=== PATIENT | female | born 2000 | race African-American/Black ===

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

== ENCOUNTER 2018-01-10 10:52 | Inpatient (IN) | payer MEDICAID ==
[~2018-01-10] VITALS: Ht 162.6 cm; Wt 94.3 kg
[2018-01-10] MEDS ORDERED: SODIUM CHLORIDE 0.9% 1,000 ML IV ONE (11:15)
[2018-01-10 12:13] LABS: Basophils # (auto) 0.1 uL; Basophils % (auto) 0.3 % (0.0-2.0); Eosinophils # (auto) 0 uL; Eosinophils % (auto) 0.2 % (0.0-7.0); Hemoglobin 14.9 g/dL (12.2-16.2); Lymphocytes % (auto) 19.5 % (10.0-50.0); Mean Corpuscular Hemoglobin 29.2 pg (28.0-32.0); Mean Corpuscular Hgb Conc. 33.2 g/dL (32.0-36.0); Mean Corpuscular Volume 87.9 fL (80.0-100.0); Monocytes # (auto) 0.7 uL; Monocytes % (auto) 4.9 % (0.0-12.0); Neutrophils # (auto) 11.4 uL; Neutrophils % (auto) 75.1 % (37.0-80.0); Platelet Count (auto) 403 10^3/uL (140-450); Red Blood Cells 5.12 10^6/uL (4.0-5.20); Red Cell Distribution Width 13.7 % (11.8-14.3); White Blood Cell 15.2 10^3/uL (4.4-10.8)
[2018-01-10 12:33] LABS: Albumin 3.9 g/dL (3.4-5.0); BUN/Creatinine Ratio 11.7; Calcium 9.2 mg/dL (8.5-10.1); Potassium 3.2 mmol/L (3.5-5.1)
[2018-01-10 12:38] LABS: Bilirubin, Total 0.5 mg/dL (0.2-1.0); Total Protein 8.1 g/dL (6.4-8.2)
[2018-01-10 12:54] LABS: Urine Bacteria NONE SEEN /hpf (None Seen); Urine Blood Negative /uL (Negative); Urine Mucus FEW (None Seen); Urine Specific Gravity 1.039 (1.001-1.035); Urine WBC 8 /hpf (0 - 5)
[2018-01-10] MEDS ORDERED: SODIUM CHLORIDE 0.9% 1,000 ML IV SCH (13:38)
[2018-01-10] MEDS ORDERED: cefTRIAXone 1GM/50ML D5W 50 ML IV ONE (13:45)
[2018-01-10] MEDS ORDERED: LORazepam 2MG/ML-1ML VIAL IV PRN (13:45)
[2018-01-10] MEDS ORDERED: ONDANSETRON HCL 4 MG/2 ML VIAL IV PRN (13:45)
[2018-01-10] MEDS ORDERED: NITROGLYCERIN 0.4 MG SL TAB SL PRN (13:45)
[2018-01-10] MEDS ORDERED: MORPHINE SULFATE 4 MG/ML SYR/VIAL IV PRN ×2 (13:45→15:15)
[2018-01-10] MEDS ORDERED: ALBUTEROL SULF 2.5 MG/0.5ML(0.5%) NEB SOLN NEB PRN (13:45)
[2018-01-10] MEDS ORDERED: PANTOPRAZOLE 40 MG/10 ML VIAL IV ONE (13:45)
[2018-01-10] MEDS: FAMOTIDINE (10MG/ML) 2ML VL IV SCH (13:58)
[2018-01-10] MEDS ORDERED: metroNIDAZOLE 500MG/100ML 100 ML IV SCH (14:00)
[2018-01-10 14:35] LABS: INR 0.95 (0.9-1.15); Partial Thromboplastin Time 27.3 sec (23.78-33.04); Prothrombin Time 10.2 sec (9.27-12.13)
[2018-01-10 14:45] VITALS: BP 117/81
[2018-01-10] MEDS ORDERED: ONDANSETRON HCL 4 MG/2 ML VIAL IV ONE (15:15)
[2018-01-10] MEDS ORDERED: MIDAZOLAM HCL 1MG/1ML-2 ML VIAL IV PRN (15:15)
[2018-01-10] MEDS ORDERED: KETOROLAC TROMETH 30 MG/ML 1ML VIAL IV ONE (15:15)
[2018-01-10] MEDS ORDERED: LABETALOL HCL 5 MG/ML 4ML SYRINGE IV PRN (15:15)
[2018-01-10] MEDS ORDERED: ePHEDrine SULFATE 50 MG/ML AMP IV PRN (15:15)
[2018-01-10] MEDS ORDERED: SUCCINYLCHOLINE CHLORIDE 20 MG/ML 10ML VIAL IV ONE (15:23)
[2018-01-10] MEDS ORDERED: MEPERIDINE HCL (50 MG/ML) 1 ML VIAL ONE (15:26)
[2018-01-10] MEDS ORDERED: MIDAZOLAM HCL 1MG/1ML-2 ML VIAL ONE (15:26)
[2018-01-10] MEDS ORDERED: fentaNYL CITRATE 100 MCG/2 ML VL ONE (15:26)
[2018-01-10] MEDS ORDERED: PROPOFOL 10 MG/ML 20 ML IV ONE (15:47)
[2018-01-10] MEDS ORDERED: DEXAMETHASONE SOD PHOS 10MG/1ML VIAL INJ ONE (15:47)
[2018-01-10] MEDS ORDERED: ROCURONIUM 10MG/ML 10ML VIAL IV ONE (15:48)
[2018-01-10] MEDS ORDERED: POVIDONE IODINE 10 % TOPICAL OINT 30GM TOP ONE (15:49)
[2018-01-10] MEDS ORDERED: MORPHINE SULFATE 4 MG/ML SYR/VIAL IV ONE (16:00)
[2018-01-10] MEDS ORDERED: PHENYLEPHRINE HCL 10 MG/ML VL ONE (16:01)
[2018-01-10] MEDS ORDERED: NEOSTIGMINE 1 MG/ML INJ (10mg/10ML VIAL) ONE (16:20)
[2018-01-10] MEDS ORDERED: KETOROLAC TROMETH 30 MG/ML 1ML VIAL ONE (16:21)
[2018-01-10] MEDS ORDERED: GLYCOPYRROLATE 0.2 MG/ML 1ML VIAL ONE (16:21)
[2018-01-10] MEDS ORDERED: IPRATROPIUM BROM 0.5 MG/2.5ML INH SOL NEB ONE (17:00)
[2018-01-10] MEDS ORDERED: ALBUTEROL SULF 2.5 MG/0.5ML(0.5%) NEB SOLN NEB ONE (17:00)
[2018-01-10] MEDS: HYDROmorphone HCL 2 MG/ML VL IV PRN ×2 (17:36→17:50)
[2018-01-10] MEDS: SOD CHL 0.9%/ KCL 40MEQ 1,000 ML IV SCH (18:51)
[2018-01-10 18:56] VITALS: BP 113/59
[2018-01-10 19:35] LABS: Basophils # (auto) 0 uL; Basophils % (auto) 0.2 % (0.0-2.0); Eosinophils # (auto) 0 uL; Hematocrit 40.6 % (36.0-46.0); Hemoglobin 13.3 g/dL (12.2-16.2); Lymphocytes # (auto) 1.5 uL; Lymphocytes % (auto) 8.1 % (10.0-50.0); Mean Corpuscular Hemoglobin 29.2 pg (28.0-32.0); Mean Corpuscular Hgb Conc. 32.8 g/dL (32.0-36.0); Mean Corpuscular Volume 89.1 fL (80.0-100.0); Monocytes # (auto) 0.2 uL; Monocytes % (auto) 1.4 % (0.0-12.0); Neutrophils # (auto) 16.2 uL; Neutrophils % (auto) 90.3 % (37.0-80.0); Platelet Count (auto) 341 10^3/uL (140-450); Red Blood Cells 4.56 10^6/uL (4.0-5.20); Red Cell Distribution Width 13.7 % (11.8-14.3)
[2018-01-10] MEDS: MORPHINE SULFATE 4 MG/ML SYR/VIAL IV PRN ×2 (19:50→22:47)
[2018-01-10] MEDS: metroNIDAZOLE 500MG/100ML 100 ML IV SCH (21:19)
[2018-01-10 21:50] VITALS: BP 111/62
[2018-01-11] MEDS: MORPHINE SULFATE 4 MG/ML SYR/VIAL IV PRN ×5 (02:51→19:57)
[2018-01-11] MEDS: FAMOTIDINE (10MG/ML) 2ML VL IV SCH ×2 (02:51→13:45)
[2018-01-11] MEDS: metroNIDAZOLE 500MG/100ML 100 ML IV SCH ×4 (02:52→21:20)
[2018-01-11 05:00] VITALS: BP 112/62
[2018-01-11] MEDS: SOD CHL 0.9%/ KCL 40MEQ 1,000 ML IV SCH ×2 (05:38→14:00)
[2018-01-11 06:22] LABS: Basophils # (auto) 0 uL; Basophils % (auto) 0.2 % (0.0-2.0); Eosinophils # (auto) 0 uL; Hematocrit 38.9 % (36.0-46.0); Lymphocytes # (auto) 1.6 uL; Lymphocytes % (auto) 8.9 % (10.0-50.0); Mean Corpuscular Hemoglobin 29.6 pg (28.0-32.0); Mean Corpuscular Hgb Conc. 33.4 g/dL (32.0-36.0); Mean Corpuscular Volume 88.5 fL (80.0-100.0); Monocytes # (auto) 0.8 uL; Monocytes % (auto) 4.8 % (0.0-12.0); Neutrophils % (auto) 86.1 % (37.0-80.0); Platelet Count (auto) 336 10^3/uL (140-450); Red Cell Distribution Width 13.6 % (11.8-14.3); White Blood Cell 17.4 10^3/uL (4.4-10.8)
[2018-01-11 06:39] LABS: Potassium 4.3 mmol/L (3.5-5.1)
[2018-01-11 06:46] LABS: BUN/Creatinine Ratio 15.1
[2018-01-11 06:49] LABS: Bilirubin, Total 0.4 mg/dL (0.2-1.0); Total Protein 6.4 g/dL (6.4-8.2)
[2018-01-11 07:28] LABS: Cholesterol 157 mg/dL (< 200); HDL Cholesterol 34 mg/dL (40-59); LDL Cholesterol 116 mg/dL (< 100); Triglycerides 66 mg/dL (< 150)
[2018-01-11 09:00] VITALS: BP 111/64
[2018-01-11] MEDS: cefTRIAXone 1GM/50ML D5W 50 ML IV SCH (10:00)
[2018-01-11] MEDS: ENOXAPARIN SOD 40 MG/0.4 ML SYRINGE SC SCH (10:00)
[2018-01-11] MEDS: PANTOPRAZOLE 40 MG/10 ML VIAL IV SCH (10:00)
[2018-01-11 13:00] VITALS: BP 123/89
[2018-01-11 16:34] VITALS: BP 109/67
[2018-01-11 22:00] VITALS: BP 110/71
[2018-01-12] MEDS: FAMOTIDINE (10MG/ML) 2ML VL IV SCH (02:12)
[2018-01-12] MEDS: MORPHINE SULFATE 4 MG/ML SYR/VIAL IV PRN ×5 (02:13→21:00)
[2018-01-12] MEDS: metroNIDAZOLE 500MG/100ML 100 ML IV SCH ×4 (03:08→20:59)
[2018-01-12] MEDS ORDERED: ACETAMINOPHEN 325 MG TAB PO PRN (04:15)
[2018-01-12] MEDS: SOD CHL 0.9%/ KCL 40MEQ 1,000 ML IV SCH ×2 (04:26→10:09)
[2018-01-12 04:50] VITALS: BP 107/51
[2018-01-12] MEDS: IBUPROFEN 400 MG TAB PO PRN (05:33)
[2018-01-12 09:00] VITALS: BP 100/57
[2018-01-12] MEDS: cefTRIAXone 1GM/50ML D5W 50 ML IV SCH (10:08)
[2018-01-12] MEDS: PANTOPRAZOLE 40 MG/10 ML VIAL IV SCH (10:09)
[2018-01-12] MEDS: ENOXAPARIN SOD 40 MG/0.4 ML SYRINGE SC SCH (10:09)
[2018-01-12 13:00] VITALS: BP 103/60
[2018-01-12] MEDS ORDERED: FLUoxetine HCL 10 MG CAP PO ONE (13:00)
[2018-01-12 17:00] VITALS: BP_SYST 103; BP_SYST 118; BP_DIAS 58; BP_DIAS 86
[2018-01-12] MEDS: risperiDONE 1 MG TAB PO SCH (21:53)
[2018-01-12] MEDS: DOCUSATE SOD 100 MG CAP PO SCH (21:53)
[2018-01-12] MEDS: ALPRAZolam 0.25 MG TAB PO SCH (21:54)
[2018-01-12 22:00] VITALS: BP 115/69
[2018-01-13] MEDS: metroNIDAZOLE 500MG/100ML 100 ML IV SCH ×3 (03:21→15:00)
[2018-01-13] MEDS: MORPHINE SULFATE 4 MG/ML SYR/VIAL IV PRN ×3 (03:35→16:07)
[2018-01-13 05:00] VITALS: BP 99/66
[2018-01-13 07:28] VITALS: BP 99/64
[2018-01-13 07:57] LABS: Basophils # (auto) 0 uL; Basophils % (auto) 0.8 % (0.0-2.0); Eosinophils # (auto) 0.2 uL; Eosinophils % (auto) 2.8 % (0.0-7.0); Hematocrit 39.7 % (36.0-46.0); Hemoglobin 13.1 g/dL (12.2-16.2); Lymphocytes # (auto) 1.7 uL; Mean Corpuscular Hemoglobin 29.4 pg (28.0-32.0); Mean Corpuscular Hgb Conc. 32.9 g/dL (32.0-36.0); Mean Corpuscular Volume 89.2 fL (80.0-100.0); Monocytes # (auto) 0.5 uL; Monocytes % (auto) 8.5 % (0.0-12.0); Neutrophils # (auto) 3.6 uL; Neutrophils % (auto) 59.9 % (37.0-80.0); Nucleated Red Blood Cells % 0.1 %; Platelet Count (auto) 261 10^3/uL (140-450); Red Blood Cells 4.45 10^6/uL (4.0-5.20); Red Cell Distribution Width 13.9 % (11.8-14.3); White Blood Cell 6.1 10^3/uL (4.4-10.8)
[2018-01-13 08:58] VITALS: BP 101/61
[2018-01-13] MEDS: DOCUSATE SOD 100 MG CAP PO SCH ×2 (10:00→21:47)
[2018-01-13] MEDS: PANTOPRAZOLE 40 MG TAB PO SCH (10:01)
[2018-01-13] MEDS: ALPRAZolam 0.25 MG TAB PO SCH ×2 (10:01→21:47)
[2018-01-13] MEDS: risperiDONE 1 MG TAB PO SCH ×2 (10:01→21:47)
[2018-01-13] MEDS: FLUoxetine HCL 10 MG CAP PO SCH (10:01)
[2018-01-13] MEDS: ENOXAPARIN SOD 40 MG/0.4 ML SYRINGE SC SCH (10:01)
[2018-01-13] MEDS: cefTRIAXone 1GM/50ML D5W 50 ML IV SCH (11:15)
[2018-01-13 13:00] VITALS: BP 103/56
[2018-01-13 17:00] VITALS: BP 105/60
[2018-01-13] MEDS ORDERED: HYDROcodone-ACET 5/325MG TAB PO PRN (18:30)
[2018-01-13 21:44] VITALS: BP 105/52
[2018-01-14 04:49] VITALS: BP 101/61
[2018-01-14] MEDS: IBUPROFEN 400 MG TAB PO PRN (05:53)
[2018-01-14 09:00] VITALS: BP 115/64
[2018-01-14] MEDS: PANTOPRAZOLE 40 MG TAB PO SCH (11:15)
[2018-01-14] MEDS: risperiDONE 1 MG TAB PO SCH (11:15)
[2018-01-14] MEDS: FLUoxetine HCL 10 MG CAP PO SCH (11:15)
[2018-01-14] MEDS: DOCUSATE SOD 100 MG CAP PO SCH (11:15)
[2018-01-14] MEDS: ENOXAPARIN SOD 40 MG/0.4 ML SYRINGE SC SCH (11:16)
[2018-01-14] MEDS: ALPRAZolam 0.25 MG TAB PO SCH (11:16)
[2018-01-14] MEDS ORDERED: PANT40T PO (12:55)
[2018-01-14 13:00] VITALS: BP 110/62
[2018-01-14] MEDS ORDERED: traMADol HCL 50 MG TAB PO PRN (13:00)
[2018-01-14] MEDS ORDERED: LACTULOSE 20Gm/30ML SOLN PO ONE (13:00)
[2018-01-14 17:10] VITALS: BP 103/60
== END 2018-01-14 17:52 | disposition home or self-care (01) | DRG 263 ==
LOC: EDBD 10:52 → ER 10:52 → TELE 10:53 → TELE-EAST 18:18 → EAST 01-12 21:32
PROVIDERS: ADMIT Internal Medicine; ATTEND Internal Medicine
PROC: 0FT44ZZ Resection of Gallbladder, Percutaneous Endoscopic Approach (ICD-10-PCS; principal; 2018-01-10 15:29)
DX: K80.00 Calculus of gallbladder with acute cholecystitis without obstruction (principal); R65.10 Systemic inflammatory response syndrome (SIRS) of non-infectious origin without acute organ dysfunction; E66.01 Morbid (severe) obesity due to excess calories; F31.30 Bipolar disorder, current episode depressed, mild or moderate severity, unspecified; J45.909 Unspecified asthma, uncomplicated; E78.5 Hyperlipidemia, unspecified; Z68.35 Body mass index [BMI] 35.0-35.9, adult; Z71.3 Dietary counseling and surveillance; F41.9 Anxiety disorder, unspecified; F60.9 Personality disorder, unspecified; Z82.49 Family history of ischemic heart disease and other diseases of the circulatory system; Z83.3 Family history of diabetes mellitus; Z91.19 Patient's noncompliance with other medical treatment and regimen; Z88.8 Allergy status to other drugs, medicaments and biological substances; R50.9 Fever, unspecified
CPT/HCPCS: 36415; 71045; 76705; 80053; 80061; 81001; 81025; 82150; 82247; 83690; 85025; 85379; 85610; 85652; 85730; 86850; 86900; 86901; 93005; 94640; 96361; 96365; 96375; 97116; 97163; A6257; C9113; G0378; J0330; J0696; J1100; J1885; J2250; J2405; J2704; J3490

== ENCOUNTER 2018-02-11 16:16 | Emergency (ER) | payer MEDICAID ==
[~2018-02-11] VITALS: Ht 162.6 cm; Wt 91.2 kg
[~2018-02-11 16:16] MED LIST changes: +PANT40T PO
[2018-02-11 16:25] VITALS: BP 114/81
[2018-02-11] MEDS ORDERED: IBUPROFEN 800 MG TAB PO ONE (16:45)
== END 2018-02-11 18:21 | disposition home or self-care (01) ==
LOC: ER 16:24
DX: H60.93 Unspecified otitis externa, bilateral (principal); R42 Dizziness and giddiness; J45.909 Unspecified asthma, uncomplicated; Z90.49 Acquired absence of other specified parts of digestive tract

== ENCOUNTER 2018-06-12 17:04 | Emergency (ER) | payer MEDICAID ==
[~2018-06-12] VITALS: Ht 162.6 cm; Wt 98.2 kg
[2018-06-12 17:33] VITALS: BP 12/71
== END 2018-06-12 17:59 | disposition home or self-care (01) ==
LOC: ER 17:06
DX: S53.402A Unspecified sprain of left elbow, initial encounter (principal); J45.909 Unspecified asthma, uncomplicated; Z90.49 Acquired absence of other specified parts of digestive tract; Z88.2 Allergy status to sulfonamides; Z88.6 Allergy status to analgesic agent; W01.0XXA Fall on same level from slipping, tripping and stumbling without subsequent striking against object, initial encounter; Y93.89 Activity, other specified; Y92.89 Other specified places as the place of occurrence of the external cause; Y99.8 Other external cause status
CPT/HCPCS: 73080; 81025

== ENCOUNTER 2018-09-23 13:37 | Emergency (ER) | payer MEDICAID ==
[~2018-09-23] VITALS: Ht 165.1 cm; Wt 90.7 kg
[2018-09-23 15:03] LABS: Chloride 108 mmol/L (98-107); Potassium 3.7 mmol/L (3.5-5.1); Sodium 140 mmol/L (136-145)
[2018-09-23 15:07] LABS: Albumin 3.4 g/dL (3.4-5.0); Anion Gap 9 (5-15); BUN/Creatinine Ratio 10.1; Blood Urea Nitrogen 8 mg/dL (7-18); Calcium 8.5 mg/dL (8.5-10.1); Carbon Dioxide 23 mmol/L (21-32); GFR African American 119 mL/min; GFR Non-African American 99 mL/min; Glucose 88 mg/dL (74-106)
[2018-09-23 15:22] LABS: Alanine Aminotransferase 26 U/L (13-56); Alkaline Phosphatase 52 U/L (45-117); Aspartate Aminotransferase 17 U/L (15-37); Bilirubin, Total 0.3 mg/dL (0.2-1.0); Total Protein 7.5 g/dL (6.4-8.2)
[2018-09-23 16:01] LABS: Urine WBC None Seen /hpf (0 - 5)
[2018-09-23 16:30] LABS: Urine Amorphous Crystal FEW /hpf (None Seen); Urine Bacteria NONE SEEN /hpf (None Seen); Urine Blood Negative /uL (Negative); Urine Specific Gravity 1.014 (1.001-1.035)
[2018-09-23 17:00] VITALS: BP 130/49
== END 2018-09-23 17:49 | disposition home or self-care (01) ==
LOC: EDBD 13:37 → ER 13:40
DX: O99.351 Diseases of the nervous system complicating pregnancy, first trimester (principal); G40.909 Epilepsy, unspecified, not intractable, without status epilepticus; Z90.49 Acquired absence of other specified parts of digestive tract; Z3A.11 11 weeks gestation of pregnancy
CPT/HCPCS: 36415; 80053; 81001

== ENCOUNTER 2019-04-23 22:19 | Emergency (ER) | payer MEDICAID ==
[~2019-04-23] VITALS: Ht 170.2 cm; Wt 99.8 kg
[2019-04-23] MEDS ORDERED: LEVETIRACETAM INJ 1,000 MG in D5W 5% 100 ML IV ONE (23:30)
[2019-04-24 00:15] LABS: Basophils # (auto) 0.1 uL; Basophils % (auto) 0.6 % (0.0-2.0); Eosinophils # (auto) 0.2 uL; Eosinophils % (auto) 1.7 % (0.0-7.0); Hematocrit 43.7 % (36.0-46.0); Hemoglobin 14.7 g/dL (12.2-16.2); Lymphocytes # (auto) 3.5 uL; Lymphocytes % (auto) 27.8 % (10.0-50.0); Mean Corpuscular Hemoglobin 29.2 pg (28.0-32.0); Mean Corpuscular Hgb Conc. 33.5 g/dL (32.0-36.0); Mean Corpuscular Volume 87.2 fL (80.0-100.0); Monocytes # (auto) 0.7 uL; Monocytes % (auto) 5.7 % (0.0-12.0); Neutrophils % (auto) 64.2 % (37.0-80.0); Platelet Count (auto) 370 10^3/uL (140-450); Red Blood Cells 5.01 10^6/uL (4.0-5.20); Red Cell Distribution Width 13.4 % (11.8-14.3); White Blood Cell 12.5 10^3/uL (4.4-10.8)
[2019-04-24 00:32] LABS: Albumin 3.4 g/dL (3.4-5.0); BUN/Creatinine Ratio 14.1; Calcium 8.5 mg/dL (8.5-10.1); Potassium 3.9 mmol/L (3.5-5.1)
[2019-04-24 00:35] LABS: Bilirubin, Total 0.3 mg/dL (0.2-1.0); Total Protein 7.5 g/dL (6.4-8.2)
[2019-04-24] MEDS ORDERED: LEVETIRACETAM 500 MG/5ML INJ IV ONE (01:33)
[2019-04-24 02:00] VITALS: BP 131/72
== END 2019-04-24 03:00 | disposition home or self-care (01) ==
LOC: EDBD 22:19 → ER 22:21
DX: G40.409 Other generalized epilepsy and epileptic syndromes, not intractable, without status epilepticus (principal); Z90.49 Acquired absence of other specified parts of digestive tract
CPT/HCPCS: 36415; 80053; 85025; 96365; 99283; J1953; J7060